=== PATIENT | male | born 2000 | race Caucasian/White ===

== ENCOUNTER 2022-08-17 05:57 | Emergency (ER) | payer OTHER ==
[~2022-08-17] VITALS: Ht 190.5 cm; Wt 88.0 kg
[2022-08-17 11:48] LABS: *AMPHETAMINES SCREEN URINE NEGATIVE (NEGATIVE); *BARBITURATES SCREEN URINE NEGATIVE (NEGATIVE); *BENZODIAZEPINES SCREEN URINE NEGATIVE (NEGATIVE); *COCAINE SCREEN URINE NEGATIVE (NEGATIVE); CANNABINOID URINE SCREEN PRESUMTIVE POSITIVE (NEGATIVE); METHADONE URINE SCREEN NEGATIVE (NEGATIVE); OPIATES URINE SCREEN NEGATIVE (NEGATIVE); PHENCYCLIDINE URINE SCREEN NEGATIVE (NEGATIVE)
[2022-08-17 11:52] LABS: BASOPHILS % 1.3 % (0.0-2.0); EOSINOPHILS % 1.3 % (0.0-5.0); HEMATOCRIT. 41.3 % (42.0-52.0); HEMOGLOBIN. 13.1 g/dL (14.0-18.0); LYMPHOCYTES % 31.4 % (20.0-50.0); MEAN CORPUSCULAR HEMOGLOBIN 24.1 pg (28.0-32.0); MEAN CORPUSCULAR VOLUME 75.9 fL (80.0-94.0); MEAN PLATELET VOLUME 7.8 fl (7.4-10.4); PLATELET 249 x1000/uL (130-400); RED BLOOD CELL COUNT 5.44 mill/uL (4.7-6.1); RED CELL DISTRIBUTION WIDTH 13.4 % (11.6-14.6)
[2022-08-17 11:59] LABS: CHLORIDE 111 mEq/L (98-107)
[2022-08-17 12:06] LABS: ETHANOL BLOOD 26 mg/dL
[2022-08-17 19:37] VITALS: BP 119/75
== END 2022-08-17 19:38 | disposition home or self-care (01) ==
LOC: ER 05:57
DX: R45.851 Suicidal ideations (principal); F32.9 Major depressive disorder, single episode, unspecified; F10.10 Alcohol abuse, uncomplicated; Y90.1 Blood alcohol level of 20-39 mg/100 ml; Z20.822 Contact with and (suspected) exposure to COVID-19
CPT/HCPCS: 36415; 80053; 80305; 80307; 80320; 80329; 85025; 87426; 99283; C9803; G0480

== ENCOUNTER 2023-04-12 05:45 | Emergency (ER) | payer OTHER, MEDICAID ==
[~2023-04-12] VITALS: Ht 182.9 cm; Wt 71.0 kg
[2023-04-12 06:13] VITALS: O2SAT 98
[2023-04-12] MEDS ORDERED: KETOROLAC 60MG/2ML VIAL IM ONE (06:45)
[2023-04-12] MEDS: HYDROCODONE/ACETAMINOPHEN 5/325MG TABLET PO ONE ×2 (09:32→09:39)
[2023-04-12] MEDS ORDERED: IBUP-2029 MT (09:38)
[2023-04-12 11:18] VITALS: BP 116/71; PULSE 75; RESP 18; TEMP 99.1
== END 2023-04-12 11:20 | disposition home or self-care (01) ==
LOC: ER 05:45
DX: S80.12XA Contusion of left lower leg, initial encounter (principal); V29.99XA Rider (driver) (passenger) of other motorcycle injured in unspecified traffic accident, initial encounter; Y93.89 Activity, other specified; Y92.89 Other specified places as the place of occurrence of the external cause; Y99.8 Other external cause status
CPT/HCPCS: 99284; 73502; 73552; 73560; 96372; J1885